=== PATIENT | female | born 1965 | race Caucasian/White ===

== ENCOUNTER 2016-06-02 11:27 | Emergency (ER) | payer OTHER ==
[~2016-06-02] VITALS: Ht 165.1 cm; Wt 68.9 kg
[2016-06-02 11:42] VITALS: BP 136/78
--- NOTE | 2016-06-02 11:45 | NUR ---
Patient ambulated to bed 7. RN evaluating patient at bedside.
--- NOTE | 2016-06-02 11:46 | NUR ---
PATIENT PRESENTS TO ED WITH REFERRAL FROM PCP FOR DIZZINESS AND PALPITATIONS; PT DENIES ANY DIZZINESS OR CHEST PAIN AT THIS TIME. DENIES N/V/D; SKIN IS PINK/WARM/DRY; AAOX4 WITH EVEN AND STEADY GAIT; LUNGS CLEAR BL; HR EVEN AND REGULAR; PT DENIES ANY FEVER, CP, SOB, OR COUGH AT THIS TIME; PATIENT STATES PAIN OF 0/10 AT THIS TIME; VSS; PATIENT POSITIONED FOR COMFORT; HOB ELEVATED; BEDRAILS UP X2; BED DOWN. ER MD MADE AWARE OF PT STATUS.
[2016-06-02 13:55] VITALS: BP 111/62
== END 2016-06-02 13:56 | disposition home or self-care (01) ==
LOC: MED 11:27
DX: F41.9 Anxiety disorder, unspecified (principal); I10 Essential (primary) hypertension; E78.00 Pure hypercholesterolemia, unspecified; F32.9 Major depressive disorder, single episode, unspecified

== ENCOUNTER 2016-07-13 00:13 | Emergency (ER) | payer OTHER ==
[~2016-07-13] VITALS: Ht 165.1 cm; Wt 68.9 kg
[2016-07-13 00:16] VITALS: BP 137/77
--- NOTE | 2016-07-13 01:03 | NUR ---
PT TAKEN TO [facility] FROM [facility]
--- NOTE | 2016-07-13 01:17 | NUR ---
PT RETURN FROM XRAY TO LOBBY
--- NOTE | 2016-07-13 02:12 | NUR ---
PT TAKEN TO BED 4
--- NOTE | 2016-07-13 02:12 | NUR ---
51Y F C/O CHEST PAIN FOR 3 DAYS, WHILE WATCHING TV, RADIATING TO HER BACK. EKG DONE NOTED BY ARMANDO . PT DENIES N/V/D; SKIN IS PINK/WARM/DRY; AAOX4 WITH EVEN AND STEADY GAIT; LUNGS CLEAR BL; HR EVEN AND REGULAR; PT DENIES ANY FEVER, SOB, OR COUGH AT THIS TIME; ; VSS; PATIENT POSITIONED FOR COMFORT; HOB ELEVATED; BEDRAILS UP X2; BED DOWN. ER MD MADE AWARE OF PT STATUS.
--- NOTE | 2016-07-13 02:45 | NUR ---
Dr. Starr evaluating patient at bedside.
[2016-07-13 03:25] VITALS: BP 132/72
--- NOTE | 2016-07-13 03:25 | NUR ---
Patient discharged with v/s stable. Written and verbal after care instructions given and explained. Patient alert, oriented and verbalized understanding of instructions. Ambulatory with steady gait. All questions addressed prior to discharge. ID band removed. Patient advised to follow up with PMD. Rx of TRAMADOL 50MG given. Patient educated on indication of medication including possible reaction and side effects. Opportunity to ask questions provided and answered.
== END 2016-07-13 03:25 | disposition home or self-care (01) ==
LOC: MED 00:13
DX: R07.89 Other chest pain (principal); R03.0 Elevated blood-pressure reading, without diagnosis of hypertension
CPT/HCPCS: 99283

== ENCOUNTER 2017-08-15 18:57 | Emergency (ER) | payer OTHER ==
[~2017-08-15] VITALS: Ht 165.1 cm; Wt 73.2 kg
[2017-08-15 19:03] VITALS: BP 138/76
[2017-08-15] MEDS ORDERED: diphenhydrAMINE 50 MG CAP PO ONE (19:15)
--- NOTE | 2017-08-15 19:19 | NUR ---
PT TAKEN TO BED 9
--- NOTE | 2017-08-15 19:20 | NUR ---
52YO F PATIENT PRESENTS TO ED WITH AN ALLERGIC REACTION . PT STATES THAT AN HR AFTER HAVING SHRIMP SHE BEGAN TO HAVE FULL BODY ITICHING . DENIES N/V/D; SKIN IS PINK/WARM/DRY WITH RAISED WHEALS ALL OVER BODY NOTED; AAOX4 WITH EVEN AND STEADY GAIT; LUNGS CLEAR BL; HR EVEN AND REGULAR; PT DENIES ANY FEVER, CP, SOB, OR COUGH AT THIS TIME; PATIENT STATES PAIN OF 6/10 AT THIS TIME; VSS; PATIENT POSITIONED FOR COMFORT; HOB ELEVATED; BEDRAILS UP X2; BED DOWN. ER MD MADE AWARE OF PT STATUS.
[2017-08-15 20:10] VITALS: BP 115/75
--- NOTE | 2017-08-15 20:10 | NUR ---
Patient discharged with v/s stable. Written and verbal after care instructions given and explained. Patient alert, oriented and verbalized understanding of instructions. Ambulatory with steady gait. All questions addressed prior to discharge. ID band removed. Patient advised to follow up with PMD. Rx of PREDNISONE 20MG, BENADRYL ALLERGY 25MG given. Patient educated on indication of medication including possible reaction and side effects. Opportunity to ask questions provided and answered.
== END 2017-08-15 20:10 | disposition home or self-care (01) ==
LOC: MED 18:57
DX: T78.1XXA Other adverse food reactions, not elsewhere classified, initial encounter (principal); X58.XXXA Exposure to other specified factors, initial encounter
CPT/HCPCS: 99283; Q0163

== ENCOUNTER 2017-10-30 21:02 | Emergency (ER) | payer OTHER ==
[~2017-10-30] VITALS: Ht 165.1 cm; Wt 71.7 kg
--- NOTE | 2017-10-30 21:14 | NUR ---
PT AMBULATED TO BED 1
--- NOTE | 2017-10-30 21:15 | NUR ---
PT BEDSIDE TRIAGED IN BED 1 BY RN. EDMD MADE AWARE OF PT STATUS.
[2017-10-30] MEDS ORDERED: NACL 0.9% 1,000 ML IV ONE (21:19)
[2017-10-30 21:20] VITALS: BP 123/74
[2017-10-30] MEDS ORDERED: diphenhydrAMINE 50 MG/ML VIAL IVP ONE (21:20)
[2017-10-30] MEDS ORDERED: methylPREDNISolone SS 125 MG in WATER STERILE 2 ML IV ONE (21:20)
[2017-10-30] MEDS ORDERED: FAMOTIDINE 20 MG/2 ML VIAL IVP ONE (21:20)
--- NOTE | 2017-10-30 21:20 | NUR ---
PT CAME IN WITH C/O RASH ALLERGIC RXN TO SEAFOOD. PT STATED SHE ATE SHRIMP AND IS ALLERGIC TO IT; SKIN IS PINK/WARM/DRY; AAOX4 WITH EVEN AND STEADY GAIT; LUNGS CLEAR BL; HR EVEN AND REGULAR; PT DENIES ANY, CP, SOB, AT THIS TIME; PATIENT STATES NO PAIN OF AT THIS TIME; VSS; PATIENT POSITIONED FOR COMFORT; HOB ELEVATED; BEDRAILS UP X2; BED DOWN. ER MD MADE AWARE OF PT STATUS.
--- NOTE | 2017-10-30 21:21 | NUR ---
Dr. Traore evaluating patient at bedside.
[2017-10-30 23:00] VITALS: BP 123/74
--- NOTE | 2017-10-30 23:00 | NUR ---
Patient discharged with v/s stable. Written and verbal after care instructions given and explained. Patient alert, oriented and verbalized understanding of instructions. Ambulatory with steady gait. All questions addressed prior to discharge. ID band removed. Patient advised to follow up with PMD. Rx of EPIPEN, PREDNISONE, PEPCID WERE given. Patient educated on indication of medication including possible reaction and side effects. Opportunity to ask questions provided and answered.
== END 2017-10-30 23:00 | disposition home or self-care (01) ==
LOC: MED 21:02
DX: L50.0 Allergic urticaria (principal); Z91.013 Allergy to seafood
CPT/HCPCS: 96361; 96374; 96375; 99284; J2930; J3490; J7030

== ENCOUNTER 2018-12-13 12:34 | Emergency (ER) | payer OTHER ==
[~2018-12-13] VITALS: Ht 167.6 cm; Wt 75.3 kg
[2018-12-13 12:45] VITALS: BP 127/69
[2018-12-13] MEDS ORDERED: LORazepam 0.5 MG TAB PO ONE (14:10)
[2018-12-13 14:56] VITALS: BP 125/62
== END 2018-12-13 14:56 | disposition home or self-care (01) ==
LOC: MED 12:34
DX: R53.1 Weakness (principal); F43.9 Reaction to severe stress, unspecified; R51 Headache; F41.9 Anxiety disorder, unspecified; Z91.013 Allergy to seafood
CPT/HCPCS: 81002; 81025; 82948; 99283; J7030

== ENCOUNTER 2019-01-15 06:39 | Emergency (ER) | payer OTHER ==
[~2019-01-15] VITALS: Ht 165.1 cm; Wt 73.5 kg
[2019-01-15 06:47] VITALS: BP 126/86
[2019-01-15] MEDS ORDERED: LORazepam 2 MG/ML VIAL IM ONE (07:25)
[2019-01-15 08:22] VITALS: BP 126/76
== END 2019-01-15 08:22 | disposition home or self-care (01) ==
LOC: MED 06:39
DX: F41.9 Anxiety disorder, unspecified (principal); R03.0 Elevated blood-pressure reading, without diagnosis of hypertension; Z91.013 Allergy to seafood
CPT/HCPCS: 96372; 99283; J2060

== ENCOUNTER 2019-08-08 19:47 | Emergency (ER) | payer OTHER ==
[~2019-08-08] VITALS: Ht 165.1 cm; Wt 68.9 kg
[2019-08-08 19:51] VITALS: BP 142/86
--- NOTE | 2019-08-08 20:00 | NUR ---
PT TAKEN TO BED 12
--- NOTE | 2019-08-08 20:12 | NUR ---
Dr. Traore examining patient.
[2019-08-08] MEDS ORDERED: LORazepam 2 MG/ML VIAL IM ONE (20:30)
--- NOTE | 2019-08-08 20:51 | NUR ---
C/O ANXIETY ATTACKS X1 WEEK, TX WITH XANAX WITH LITTLE RELIEF. PT AAOX4, COOPERATIVE, SPEAKING IN FULL COMPLETE SENTENCES, AMBULATES WITH STEADY GAIT. PT DENEIS CP OR SOB. REPORTS HEADACHE AT 5/10 X3 DAYS. PMH:ANXIETY, CHOLESTEROL RX:XANAX
--- NOTE | 2019-08-08 21:03 | NUR ---
PT REPORTS ANXIETY HAS DECLINED SINCE ATIVAN ADMINISTRATION AND SAYS HEADACHE IS GONE. PROVIDED PT WITH WATER AT THIS TIME.
[2019-08-08 21:17] VITALS: BP 142/86
--- NOTE | 2019-08-08 21:17 | NUR ---
Patient discharged with v/s stable. Written and verbal after care instructions given and explained. Patient alert, oriented and verbalized understanding of instructions. Ambulatory with steady gait. All questions addressed prior to discharge. ID band removed. Patient advised to follow up with PMD. Rx of HYDROXYZINE HYDROCHLORIDE given. Patient educated on indication of medication including possible reaction and side effects. Opportunity to ask questions provided and answered.
== END 2019-08-08 21:17 | disposition home or self-care (01) ==
LOC: MED 19:47
DX: F41.9 Anxiety disorder, unspecified (principal); R51 Headache; F43.9 Reaction to severe stress, unspecified; Z91.013 Allergy to seafood
CPT/HCPCS: 96372; 99283; J2060

== ENCOUNTER 2023-07-09 19:38 | Inpatient (IN) | payer OTHER ==
[~2023-07-09] VITALS: Ht 165.1 cm; Wt 72.6 kg
[2023-07-09 20:03] VITALS: BP 109/70; PULSE 105; RESP 16; TEMP 100.3; O2SAT 99
[2023-07-09] MEDS: ACETAMINOPHEN 325 MG TAB PO ONE (20:25)
[2023-07-09] MEDS: NACL 0.9% 1,000 ML IV ONE ×2 (21:06→23:06)
[2023-07-09 21:19] LABS: BASOPHILS % (AUTO) 0.2 % (0.0-2.0); HEMATOCRIT 39.9 % (36-48); HEMOGLOBIN 13.8 g/dL (12.0-16.0); LYMPHOCYTES # (AUTO) 1.9 K/uL (2.5-16.5); LYMPHOCYTES % (AUTO) 18.1 % (20.5-51.1); MEAN CORPUSCULAR HEMOGLOBIN 30 pg (27-31); MEAN CORPUSCULAR HGB CONC 35 g/dL (33-37); MEAN CORPUSCULAR VOLUME 85.7 fL (80-94); MONOCYTES # (AUTO) 0.4 K/uL (0.8-1.0); MONOCYTES % (AUTO) 3.7 % (1.7-9.3); NEUTROPHILS # (AUTO) 8.3 K/uL (1.8-7.7); PLATELET COUNT (AUTO) 232 K/uL (140-450); RED BLOOD CELL COUNT(AUTO) 4.66 MIL/uL (4.20-5.40); RED CELL DISTRIBUTION WIDTH 13.4 % (11.6-13.7); WHITE BLOOD COUNT (AUTO) 10.6 K/uL (4.8-10.8)
[2023-07-09 21:23] LABS: APPEARANCE,URINE CLEAR (CLEAR); BILIRUBIN,URINE NEGATIVE (NEGATIVE); BLOOD, URINE 2+ (NEGATIVE); COLOR,URINE YELLOW (YELLOW); LEUKOCYTE ESTERASE ,URINE TRACE (NEGATIVE); NITRITE, URINE NEGATIVE (NEGATIVE); PH,URINE 6.5 (5.0-9.0); PROTEIN,URINE NEGATIVE (NEGATIVE); UGLUCOSE NEGATIVE (NEGATIVE); UROBILINOGEN,URINE 0.2 EU/dL (0.2 - 1)
[2023-07-09 21:34] LABS: BACTERIA,URINE 10-30 (MOD) /HPF (None Seen); SQUAMOUS EPITHELIAL CELL,UR 4-10 (MOD) /LPF (0-3 (FEW)); WBC,URINE 0-5 /HPF (0-5)
[2023-07-09 21:36] LABS: ANION GAP 13.2 (8-16); CALCIUM 8.6 mg/dL (8.5-10.1); CARBON DIOXIDE 27.3 mmol/L (21-32); CREATININE 0.9 mg/dL (0.6-1.3); POTASSIUM 3.5 mmol/L (3.5-5.1)
[2023-07-09 21:46] LABS: ALANINE AMINOTRANSFERASE 434 U/L (12-78); ALBUMIN 2.7 g/dL (3.4-5.0); ALKALINE PHOSPHATASE 568 U/L (50-136); ASPARTATE AMINOTRANSFERASE 271 U/L (15-37); BILIRUBIN,DIRECT 0.5 mg/dL (0.0-0.3); CREATINE KINASE, TOTAL 92 U/L (26-192); INR 0.94 (0.8-1.2); LACTIC ACID 1.4 mmol/L (0.4-2.0); PARTIAL THROMBOPLASTIN TIME 26.4 secs (22-35.6); PROTHROMBIN TIME 9.9 secs (10.8-13.4); TOTAL BILIRUBIN 1.2 mg/dL (0.0-1.0); TOTAL PROTEIN, SERUM 8.2 g/dL (6.4-8.2)
[2023-07-09 21:54] LABS: FLU A ANTIGEN negative (NEGATIVE); FLU B ANTIGEN NEGATIVE (NEGATIVE)
[2023-07-09] MEDS: KETOROLAC 30 MG/ML VIAL IVP ONE (23:05)
[2023-07-09] MEDS ORDERED: cefTRIAXone 1,000 MG VIAL ONE (23:33)
[2023-07-10] MEDS ORDERED: AZITHROMYCIN 500 MG INJ VIAL IV ONE ×2 (00:59→08:22)
[2023-07-10] MEDS: AZITHROMYCIN 500 MG INJ VIAL IV ONE (01:04)
[2023-07-10] MEDS: AZITHROMYCIN 500 MG in DEXTROSE 5% 250 ML IV ONE (01:14)
[2023-07-10] MEDS ORDERED: DULO30EC PO (01:32)
[2023-07-10] MEDS ORDERED: OMEP20EC11 PO (01:32)
[2023-07-10] MEDS ORDERED: CLON-1201 PO (01:33)
[2023-07-10] MEDS ORDERED: ATOR20TA40 PO (01:34)
[2023-07-10] MEDS ORDERED: ACETAMINOPHEN EXTRA STRENGTH 500 MG TAB ONE (05:21)
[2023-07-10] MEDS: ACETAMINOPHEN EXTRA STRENGTH 500 MG TAB PO ONE (05:30)
[2023-07-10] MEDS ORDERED: MAG SULF 2000 MG/WATER PREMIX 50 ML IV PRN (07:10)
[2023-07-10] MEDS ORDERED: POTASSIUM CHLORIDE 10 MEQ TABER PO PRN (07:10)
[2023-07-10] MEDS ORDERED: HYDROcodone/APAP 5/325 MG 1 TAB TAB PO PRN (07:10)
[2023-07-10] MEDS ORDERED: KCL 20 MEQ IN 100 mL PREMIX 200 ML IV PRN (07:10)
[2023-07-10] MEDS ORDERED: MORPHINE SULFATE 4 MG/ML SYR IVP PRN (07:10)
[2023-07-10] MEDS ORDERED: MAGNESIUM OXIDE 400 MG TAB PO PRN (07:10)
[2023-07-10] MEDS ORDERED: cefTRIAXone 1,000 MG VIAL ONE (07:40)
[2023-07-10] MEDS: AZITHROMYCIN 500 MG in DEXTROSE 5% 250 ML IV SCH (08:46)
[2023-07-10] MEDS: DOCUSATE SODIUM 100 MG GELCAP PO SCH (09:35)
[2023-07-10] MEDS: ENOXAPARIN 40 MG/0.4 ML SYR SUBQ SCH (09:37)
[2023-07-10 12:45] VITALS: PULSE 92; RESP 17; O2SAT 98
[2023-07-10] MEDS: ACETAMINOPHEN 325 MG TAB PO PRN (13:50)
[2023-07-10 14:07] VITALS: O2SAT 97
[2023-07-10 16:00] VITALS: BP 101/59; PULSE 99; RESP 18; TEMP 99.8; O2SAT 96
[2023-07-10 20:00] VITALS: BP 115/64; PULSE 101; RESP 18; TEMP 98.7; O2SAT 97
[2023-07-10] MEDS: MEDS-TO-BEDS MC SCH (20:41)
[2023-07-11 04:00] VITALS: BP 116/64; PULSE 104; RESP 18; TEMP 98.8; O2SAT 97
[2023-07-11 05:55] LABS: BASOPHILS % (AUTO) 0.3 % (0.0-2.0); EOSINOPHILS % (AUTO) 0.1 % (0.0-4.0); HEMATOCRIT 34.9 % (36-48); LYMPHOCYTES # (AUTO) 2.3 K/uL (2.5-16.5); LYMPHOCYTES % (AUTO) 21.5 % (20.5-51.1); MEAN CORPUSCULAR HEMOGLOBIN 29 pg (27-31); MEAN CORPUSCULAR HGB CONC 34 g/dL (33-37); MEAN CORPUSCULAR VOLUME 85.5 fL (80-94); MONOCYTES # (AUTO) 0.8 K/uL (0.8-1.0); MONOCYTES % (AUTO) 7.5 % (1.7-9.3); NEUTROPHILS # (AUTO) 7.5 K/uL (1.8-7.7); NEUTROPHILS % (AUTO) 70.6 % (42.2-75.2); PLATELET COUNT (AUTO) 228 K/uL (140-450); RED BLOOD CELL COUNT(AUTO) 4.08 MIL/uL (4.20-5.40); RED CELL DISTRIBUTION WIDTH 13.1 % (11.6-13.7); WHITE BLOOD COUNT (AUTO) 10.7 K/uL (4.8-10.8)
[2023-07-11 06:17] LABS: ALBUMIN 2.3 g/dL (3.4-5.0); ANION GAP 13.2 (8-16); CALCIUM 8.6 mg/dL (8.5-10.1); CARBON DIOXIDE 26.7 mmol/L (21-32); CREATININE 0.7 mg/dL (0.6-1.3); MAGNESIUM 2.2 mg/dL (1.8-2.4); POTASSIUM 3.9 mmol/L (3.5-5.1); TOTAL BILIRUBIN 0.7 mg/dL (0.0-1.0); TOTAL PROTEIN, SERUM 7.3 g/dL (6.4-8.2)
[2023-07-11 06:26] LABS: ALBUMIN 2.4 g/dL (3.4-5.0); BILIRUBIN,DIRECT 0.3 mg/dL (0.0-0.3); TOTAL BILIRUBIN 0.7 mg/dL (0.0-1.0); TOTAL PROTEIN, SERUM 7.4 g/dL (6.4-8.2)
[2023-07-11 08:00] VITALS: BP 111/68; PULSE 101; PULSE 104; RESP 18; RESP 20; TEMP 98.2; O2SAT 93; O2SAT 97
[2023-07-11 20:00] VITALS: BP 106/67; PULSE 95; RESP 20; TEMP 98.8; O2SAT 94
[2023-07-12 04:00] VITALS: BP 105/56; PULSE 93; RESP 19; TEMP 98.2; O2SAT 96
[2023-07-12 06:00] LABS: BASOPHILS # (AUTO) 0.1 K/uL (0.00-0.22); BASOPHILS % (AUTO) 0.6 % (0.0-2.0); EOSINOPHILS # (AUTO) 0.1 K/uL (0-0.4); EOSINOPHILS % (AUTO) 0.5 % (0.0-4.0); HEMATOCRIT 34.3 % (36-48); HEMOGLOBIN 11.7 g/dL (12.0-16.0); LYMPHOCYTES # (AUTO) 2.5 K/uL (2.5-16.5); LYMPHOCYTES % (AUTO) 25.9 % (20.5-51.1); MEAN CORPUSCULAR HEMOGLOBIN 29 pg (27-31); MEAN CORPUSCULAR HGB CONC 34 g/dL (33-37); MEAN CORPUSCULAR VOLUME 85.6 fL (80-94); MONOCYTES # (AUTO) 1.1 K/uL (0.8-1.0); MONOCYTES % (AUTO) 11.5 % (1.7-9.3); NEUTROPHILS # (AUTO) 5.9 K/uL (1.8-7.7); NEUTROPHILS % (AUTO) 61.5 % (42.2-75.2); PLATELET COUNT (AUTO) 257 K/uL (140-450); RED BLOOD CELL COUNT(AUTO) 4.01 MIL/uL (4.20-5.40); RED CELL DISTRIBUTION WIDTH 13.1 % (11.6-13.7); WHITE BLOOD COUNT (AUTO) 9.5 K/uL (4.8-10.8)
[2023-07-12 06:15] LABS: ALBUMIN 2.3 g/dL (3.4-5.0); ANION GAP 12.7 (8-16); CALCIUM 8.6 mg/dL (8.5-10.1); CARBON DIOXIDE 26.2 mmol/L (21-32); CREATININE 0.7 mg/dL (0.6-1.3); MAGNESIUM 2.1 mg/dL (1.8-2.4); POTASSIUM 3.9 mmol/L (3.5-5.1); TOTAL BILIRUBIN 0.7 mg/dL (0.0-1.0); TOTAL PROTEIN, SERUM 7.2 g/dL (6.4-8.2)
[2023-07-12 08:00] VITALS: PULSE 67; RESP 17; O2SAT 96
[2023-07-12 15:06] LABS: HEPATITIS B SURFACE ANTIBODY Non Reactive (.)
[2023-07-12] MEDS ORDERED: LEVO750T75 PO (15:42)
[2023-07-12 16:00] VITALS: BP 113/64; PULSE 93; RESP 17; TEMP 97.5; O2SAT 96
[2023-07-16 07:08] LABS: HEPATITIS C AB Non Reactive (Non Reactive)
== END 2023-07-12 17:20 | disposition home or self-care (01) | DRG 720 ==
LOC: MED 19:38 → MTU 07-10 07:19 → MMU 07-10 11:24 → MTU 07-10 11:51
PROVIDERS: ADMIT Hospitalist; ATTEND Hospitalist
DX: A41.9 Sepsis, unspecified organism (principal); E43 Unspecified severe protein-calorie malnutrition; J18.9 Pneumonia, unspecified organism; E78.5 Hyperlipidemia, unspecified; Z20.822 Contact with and (suspected) exposure to COVID-19; F41.9 Anxiety disorder, unspecified; F32.A Depression, unspecified; Z79.899 Other long term (current) drug therapy; Z68.26 Body mass index [BMI] 26.0-26.9, adult
CPT/HCPCS: 36415; 71045; 76700; 80048; 80053; 80076; 81001; 82550; 83605; 83735; 83880; 84484; 85025; 85610; 85730; 86706; 86804; 87040; 87081; 87086; 87420; 87522; 93005; 96361; 96365; 96367; 96375; 99291; J0456; J0696; J1650; J1885; J7060; Q0092